=== PATIENT | female | born 1960 | race Caucasian/White ===

== ENCOUNTER 2017-08-01 07:35 | Emergency (ER) | payer OTHER ==
[~2017-08-01] VITALS: Ht 152.4 cm; Wt 77.1 kg
[2017-08-01] MEDS ORDERED: SYNTHROID50 MCG (08:01)
[2017-08-01] MEDS ORDERED: COZAAR100 MG (08:01)
[2017-08-01] MEDS ORDERED: METFORMIN HCL850 MG (08:01)
[2017-08-01] MEDS ORDERED: AMOX-CLAV 875-1 EACH (08:03)
[2017-08-01] MEDS ORDERED: TESSALON PERLE100 M1 (08:04)
[2017-08-01] MEDS ORDERED: BUDESONIDE0.5 GM (08:04)
[2017-08-01] MEDS ORDERED: LEVALBUTER0.63 MG/3 (08:04)
== END 2017-08-01 12:55 | disposition home or self-care (01) ==
LOC: ER 07:35
DX: B34.9 Viral infection, unspecified (principal)

== ENCOUNTER 2023-10-07 06:37 | Day surgery (SDC) | payer OTHER ==
[~2023-10-07 06:37] MED LIST: AMOX-CLAV 875-1 EACH; BUDESONIDE0.5 GM; COZAAR100 MG; LEVALBUTER0.63 MG/3; METFORMIN HCL850 MG; SYNTHROID50 MCG; TESSALON PERLE100 M1
[2023-10-07] MEDS ORDERED: MIDAZOLAM HCL 2 MG/2 ML VIAL IV ONE (08:15)
[2023-10-07] MEDS ORDERED: DIPHENHYDRAMINE HCL 50 MG/ML VIAL 1ML IV ONE (08:15)
[2023-10-07] MEDS ORDERED: ONDANSETRON HCL 2 MG/ML VIAL IV ONE (08:15)
[2023-10-07] MEDS ORDERED: fentaNYL CITRATE 50 MCG/ML AMPUL IV PUSH ONE (08:15)
== END 2023-10-07 10:05 | disposition home or self-care (01) ==
LOC: AMB-ENDOS 06:37
PROVIDERS: ATTEND Colon & Rectal Surgery
DX: K57.30 Diverticulosis of large intestine without perforation or abscess without bleeding (principal)